=== PATIENT | male | born 2000 | race Asian ===

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

== ENCOUNTER 2023-01-23 13:57 | Emergency (ER) | payer MEDICAID, OTHER | END 2023-01-23 17:55 | disposition left against medical advice (07) | LOC: ER 13:57 | DX: M79.643 Pain in unspecified hand (principal); Z53.21 Procedure and treatment not carried out due to patient leaving prior to being seen by health care provider ==